=== PATIENT | female | born 2000 | race Caucasian/White ===

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

== ENCOUNTER → 2020-01-26 11:41 | Outpatient (CLI) | payer OTHER, SELFPAY ==
[2020-01-26 15:09] LABS: Hematocrit 34.5 % (37-47); Hemoglobin 11.3 g/dL (12.0-15.0); Mean Corp Hgb Conc 32.8 g/dL (32-36); Mean Corpuscular Volume 88.5 fL (81-99); Platelet Count 220 K/mm3 (150-450); RBC Distribution Width CV 12.3 % (11.6-14.6); RBC Distribution Width SD 39.2 fl (35.1-43.9); White Blood Count 6.2 K/mm3 (4.4-11.0)
[2020-01-26 15:20] LABS: Vitamin B12 539 pg/mL (211-911); Vitamin D,25 Hydroxy 26.2 ng/mL
[2020-01-26 15:37] LABS: ALB/GLOB Ratio 1.2 RATIO (0.9-2.4); AST(SGOT) 15 U/L (15-37); Alanine Aminotransfer ALT/SGPT 20 U/L (13-56); Albumin, Serum 3.7 g/dL (3.2-5.0); Alkaline Phosphatase 62 U/L (45-117); Anion Gap 6 (5-15); BUN 10 mg/dL (7-18); BUN/Creat Ratio 16.1 RATIO (10-20); Calcium,Total 8.2 mg/dL (8.5-10.1); Chloride 111 mmol/L (98-107); Creatinine, Serum 0.62 mg/dL (0.55-1.02); EST Glomerular Filtration Rate 131 mL/min (>60); Est Glom Filt Rate - Afr Amer 159 mL/min (>60); Globulin 3.2 g/dL (2.2-4.2); Glucose 84 mg/dL (74-106); Iron 79 ug/dL (50-170); Potassium 3.7 mmol/L (3.5-5.1); Protein, Total 6.9 g/dL (6.4-8.2); Sodium Level 142 mmol/L (136-145); Thyroid Stim Hormone (TSH) 6.18 uIU/mL (0.358-3.74)
[2020-01-27 08:41] LABS: T4 Free Direct 0.71 ng/dL (0.76-1.46)
== END ==
PROVIDERS: PCP Family Medicine; Referring Provider Family Medicine; Visit Provider Family Medicine
DX: Z01.83 Encounter for blood typing (principal); D64.9 Anemia, unspecified; R53.83 Other fatigue
CPT/HCPCS: 36415; 80053; 82306; 82607; 83540; 84439; 84443; 85027; 86900; 86901

== ENCOUNTER 2020-04-04 23:12 | Emergency (ER) | payer OTHER, BC, SELFPAY ==
[2020-04-04 23:13] VITALS: BP 132/84; PULSE 86; RESP 18; TEMP 36.4; O2SAT 100; BMI 25.8
--- NOTE | 2020-04-04 23:30 | ED.VIS.GEN ---
History of Present Illness Chief Complaint: Nosebleed Informant: Patient Onset: Today - JPTA, around 30 min Context: Sudden Onset - spontaneous while at work Timing: Continuous Quality: nonpulsatile bleeding Location: mainly right side Current Severity: resolved Maximum Severity: Moderate Worsened by: nothing Relieved by: holding pressure Associated Symptoms: none. no sx of anemia. Narrative: Patient works in a factory, she has spontaneous onset of a nosebleed on the right side. No injury. She takes no blood thinners for any reason. She has had nosebleeds in the past due to dry air. Mainly from the right side this time. She blew out lots of large clots, at one point this restarted the bleeding and there was trouble stopping it although it is stopped now, but her work sent her for evaluation. Prior similar symptoms: Yes Recent Illness/Hospitalization: No - Past Medical History (1) Anxiety Status: Chronic Past Medical History - Allergies and Home Meds Allergies/Adverse Reactions: Allergies No Known Allergies Allergy (Verified 04/04/20 23:16) Primary Care Physician: Dirk Kunz MD [Primary Care Provider] - Solomon Hampton MD [STAFF PHYSICIAN] - As Needed Surgical History: no surgical history Smoking Status: Never smoker Review of Systems General: Denies: Chills, Fever, Sweats ENT: Reports: - - Nosebleed. See HPI.. Denies: Sore throat Respiratory: Denies: Dyspnea, Cough Gastrointestinal: Denies: Nausea, Vomiting Neurological: Denies: Weakness, Parasthesia, Numbness Physical Exam Vital Signs/Narrative: Vital Signs Temp Pulse Resp BP Pulse Ox 04/04/20 23:13 97.6 F L 86 18 132/84 H 100 General: Well nourished, Well developed, No Acute Distress Head: Normocephalic, Atraumatic Eyes: Perrl, EOMI ENT: Moist mucous membranes, No rhinorrhea, - - Nares are patent bilaterally. There is no active bleeding from the nose. There is multifocal friable tissue at Kesselbach plexus on the right that appears to be source of recent bleeding. POP clear w/o blood. Respiratory: No distress Skin: Normal color, No rash, No Trauma Neurological: Alert, Oriented x3, Cranial nerves II-XII grossly intact, Normal Strength, Normal Sensation, Normal Gait Psychological: Normal affect, Normal Mood Procedures Procedure(s): Nasal cauterization: After placing Idania mix to the septum for 20 minutes, on reevaluation there is 1 particular small area that is about half centimeter long very anterior at the plexus that appears to be the source. It was gently cauterized with silver nitrate stick without complication or bleeding. Patient was discharged in stable condition. ED Disposition - Plan for ED Patient: Disposition: Home or Assisted Living Diagnosis: Acute anterior epistaxis Instructions: ED Epistaxis Adult Referrals: Dirk Kunz MD [Primary Care Provider] - Solomon Hampton MD [STAFF PHYSICIAN] - As Needed
[2020-04-05] MEDS: Mixture 30 ML Bottle TOPICAL (00:14)
[2020-04-05] MEDS: Silver Nitrate (BKC) 1 EACH TOPICAL (00:15)
== END 2020-04-05 00:19 | disposition home or self-care (01) ==
LOC: ED 23:38
PROVIDERS: Emergency Provider Emergency Medicine; PCP Family Medicine
DX: R04.0 Epistaxis (principal)
CPT/HCPCS: 30901; 99282

== ENCOUNTER → 2020-08-28 08:59 | Outpatient (CLI) | payer OTHER, SELFPAY ==
[2020-08-28 10:44] LABS: Vitamin D,25 Hydroxy 16.1 ng/mL
[2020-08-29 09:11] LABS: T4 Free Direct 1.05 ng/dL (0.76-1.46); Thyroid Stim Hormone (TSH) 3.17 uIU/mL (0.358-3.74)
== END ==
PROVIDERS: PCP Family Medicine; Visit Provider Family Medicine
DX: E55.9 Vitamin D deficiency, unspecified (principal); E03.9 Hypothyroidism, unspecified
CPT/HCPCS: 36415; 82306; 84439; 84443

== ENCOUNTER → 2020-11-22 16:53 | Outpatient (CLI) | payer OTHER, SELFPAY ==
[2020-11-22 18:33] LABS: Vitamin D,25 Hydroxy 18.7 ng/mL
== END ==
LOC: MFPLAB 16:55
PROVIDERS: Nurse Practitioner Family; PCP Family Medicine; Visit Provider Family Medicine
DX: E55.9 Vitamin D deficiency, unspecified (principal)
CPT/HCPCS: 36415; 82306

== ENCOUNTER 2021-02-14 22:35 | Emergency (ER) | payer OTHER, SELFPAY ==
[2021-02-14 22:36] VITALS: BP 143/76; PULSE 68; RESP 18; TEMP 36.2; O2SAT 99; BMI 32.1
[2021-02-14 23:04] LABS: Mucous, Urine 0 SEEN /hpf (<or=2+); Red Blood Cells-Urine 0 SEEN /hpf (0-5)
[2021-02-14 23:33] LABS: Color, Urine Yellow (Yellow); Glucose, Dipstick Normal (Normal); Ketone-Dipstick Negative (Negative); Leukocyte Esterase-Dipstick 100 /ul (Negative); Nitrite-Dipstick Negative (Negative); Occult Blood-Urine 10 /ul (Negative); Protein-Dipstick 15 mg/dl (Negative); Urine Bilirubin Dipstick Negative (Negative); Urine Clarity Sl. Cloudy (Clear); Urine Urobilinogen 1 mg/dl (Normal)
[2021-02-14 23:38] LABS: Internal QC Validated? YES +Cl - CLEAR BKGD; Pregnancy, Urine Negative Negative
[2021-02-14 23:49] LABS: Bacteria 1+ /hpf (None Seen); Squamous Epithelial Cells - UA 5-10 SEEN /hpf (5-10); White Blood Cells 10-25 SEEN /hpf (0-5)
--- NOTE | 2021-02-15 00:06 | EDS_ITS ---
HPI History of Present Illness Chief Complaint: Complaint Narrative Narrative: Patient is a 20-year-old female who reports no significant past medical or surgical history. She states for the past 2 to 3 days she has had increased urinary frequency urgency and dysuria. She states she is also had some lower abdominal pain associated with this. She states she has noticed persistent burning even when she is not urinating however. She states that people in her family have had a cyst/abscess before and she is worried about this. Otherwise she denies any real concern for STD and states that she is not . PFSH PFSH Medical History no medical history Home Medications NK 05/11/19 [History Last Taken Unknown] cephalexin 500 mg PO TID #15 cap 02/15/21 [Rx Last Taken Unknown] phenazopyridine [Pyridium] 200 mg PO TID 2 Days #6 tab 02/15/21 [Rx Last Taken Unknown] Allergy/AdvReac Type Severity Reaction Status Date / Time No Known Allergies Allergy Verified 02/14/21 22:35 Social History Smoking Status: Never smoker [facility] ED Constitutional Constitutional ED: Denies chills or fever(s) ENT ENT ED: Denies sore throat Cardiovascular Cardiovascular: Denies chest pain Respiratory/Chest Respiratory/Chest: Denies cough or dyspnea Gastrointestinal Gastrointestinal: Reports abdominal pain; Denies diarrhea, nausea or vomiting Genitourinary Genitourinary ED: Reports dysuria and urinary frequency Musculoskeletal Musculoskeletal: Denies myalgias Integumentary Denies rash Neurologic Neurologic: Denies headache(s) Hematologic/Lymphatic Hematologic/Lymphatic: Denies easy bleeding or easy bruising EXAM Physical Exam Const Vital Signs: 02/14/21 22:36 Temperature 97.1 F L Temperature Source Temporal Pulse Rate 68 Respiratory Rate 18 Blood Pressure 143/76 H Blood Pressure Mean 98 Pulse Ox 99 Oxygen Delivery Method Room Air Positive well nourished and well developed General Appearance ED: well developed Eyes PERRL and EOMs intact bilaterally Neck supple Resp normal respiratory effort and clear to auscultation bilaterally Cardio regular rate and regular rhythm GI normal to inspection, nondistended, normoactive bowel sounds and non-distended GI Narrative: There is mild pain with palpation in the suprapubic region but no voluntary guarding or rigidity Auscultation: normoactive bowel sounds Palpation: soft Narrative: External genitalia is normal there is no signs of a Bartholin cyst/abscess no soft tissue changes to suggest Ruth's gangrene or herpetic infection Back/Spine no CVA tenderness Extremity normal to inspection Neuro oriented x3 and CN's II-XII intact bilaterally Sensorium / Orientation: alert Psych mental status grossly normal Skin no rashes or lesions noted MDM MDM MDM Narrative Medical decision making narrative: Patient presented to the ER afebrile with a soft nonsurgical abdomen and symptoms most consistent with UTI. Therefore this time I felt no need for work-up other than a urine sample. She denied concern for STD but did ask that her urine be sent for gonorrhea and chlamydia. She states she does not want treated for them at this time. The urine showed changes consistent with infection and therefore she will be placed on Keflex and Pyridium but as she does not have signs of urosepsis is safe for discharge Lab Data Labs: Laboratory Results - last 24 hr 02/14/21 22:56 Urine Color Yellow Urine Clarity Sl. Cloudy Urine pH 5.0 Ur Specific [place] 1.030 Urine Protein 15 H Urine Glucose (UA) Normal Urine Ketones Negative Urine Occult Blood 10 H Urine Nitrite Negative Urine Bilirubin Negative Urine Urobilinogen 1 H Ur Leukocyte Esterase 100 H Urine RBC 0 SEEN Urine WBC 10-25 SEEN Ur Squamous Epith Cells 5-10 SEEN Urine Bacteria 1+ Urine Mucus 0 SEEN Urine Test Negative Discharge Plan Triage Chief Complaint: Complaint ED Provider: Philipp Aguilar Dx/Rx/DC Orders Clinical Impression: Urinary tract infection Instructions: UITs Women Prescriptions: New cephalexin 500 mg capsule 500 mg PO TID Qty: 15 RF: 0 phenazopyridine [Pyridium] 200 mg tablet 200 mg PO TID 2 Days Qty: 6 RF: 0 No Action NK RF: 0 Primary Care Provider: Dirk Kunz Referrals: Dirk Kunz MD [Primary Care Provider] - Disposition Disposition: Home, Self Care
[2021-02-15] MEDS: Phenazopyridine 95 MG Tablet 190 MG PO (00:43)
[2021-02-15] MEDS: Cephalexin 250 MG Capsule 500 MG PO (00:44)
[2021-02-15 00:47] VITALS: PULSE 76; RESP 16; O2SAT 99
[2021-02-15 01:54] LABS: Chlamydia Trachomatis by PCR Negative (Negative); Neisserai gonorrhoeae by PCR Negative (Negative); Probe Check PASS; Sample Adequacy Control PASS; Specimen Processing Control PASS
== END 2021-02-15 00:47 | disposition home or self-care (01) ==
PROVIDERS: Emergency Medicine; Emergency Provider Emergency Medicine; PCP Family Medicine
DX: N39.0 Urinary tract infection, site not specified (principal)
CPT/HCPCS: 81001; 81025; 87086; 87088; 87186; 87491; 87591; 99283

== ENCOUNTER → 2021-02-15 | Outpatient (CLI) | payer OTHER, SELFPAY | END | disposition home or self-care (01) | LOC: LABSPEC 16:55 | PROVIDERS: PCP Family Medicine; Referring Provider Family Medicine; Visit Provider Nurse Practitioner Family | DX: R30.0 Dysuria (principal) | CPT/HCPCS: 87086 ==

== ENCOUNTER 2021-07-11 16:49 | Outpatient (CLI) | payer OTHER, SELFPAY ==
[2021-07-11 18:14] LABS: Anion Gap 7 (5-15); BUN 15 mg/dL (7-18); BUN/Creat Ratio 22.8 RATIO (10-20); Chloride 111 mmol/L (98-107); Creatinine, Serum 0.66 mg/dL (0.55-1.02); EST Glomerular Filtration Rate 121 mL/min (>60); Est Glom Filt Rate - Afr Amer 146 mL/min (>60); Glucose 107 mg/dL (74-106); Potassium 3.5 mmol/L (3.5-5.1); Sodium Level 139 mmol/L (136-145); Thyroid Stim Hormone (TSH) 1.67 uIU/mL (0.358-3.74)
== END 2021-07-11 23:59 | disposition home or self-care (01) ==
LOC: MTLAB 16:52
PROVIDERS: PCP Family Medicine; Referring Provider Family Medicine; Visit Provider Family Medicine
DX: R53.83 Other fatigue (principal); E03.9 Hypothyroidism, unspecified; N39.0 Urinary tract infection, site not specified
CPT/HCPCS: 36415; 80048; 82306; 84443; 87077; 87086; 87088; 87186

== ENCOUNTER 2021-09-12 14:06 | Outpatient (CLI) | payer OTHER, SELFPAY ==
[2021-09-12 15:03] LABS: Absolute Lymphocyte Count 2.74 X10^3/uL (0.83-4.51); Absolute Neutrophil Count 6.3 X10^3/uL (2.0-7.7); Basophil# 0.06 X10^3/uL; Basophil% 0.6 % (0-1); Eosinophils% 3.8 % (0-5); Hemoglobin 12.5 g/dL (12.0-15.0); Lymphocyte # 2.74 X10^3/ul (0.83-4.51); Lymphocyte % 26.2 % (19-41); Mean Corp Hgb Conc 34.7 g/dL (32-36); Mean Corpuscular Hgb 29.6 pg (27.0-32.0); Mean Corpuscular Volume 85.3 fL (81-99); Mean Platelet Vol. 12.1 fl (6.2-12.0); Monocyte# 0.92 X10^3/uL; Monocyte% 8.8 % (0-10); NRBC Flagged by Analyzer 0 % (0-5); Neutrophil # 6.28 X10^3/uL (2.7-7.7); Neutrophil % 60.1 % (47-70); Platelet Count 224 K/mm3 (150-450); RBC Distribution Width CV 12.3 % (11.6-14.6); RBC Distribution Width SD 37.4 fl (35.1-43.9); Red Blood Count 4.22 M/mm3 (4.2-5.4); White Blood Count 10.5 K/mm3 (4.4-11.0)
[2021-09-12 15:11] LABS: ALB/GLOB Ratio 1.1 RATIO (0.9-2.4); AST(SGOT) 18 U/L (15-37); Alanine Aminotransfer ALT/SGPT 36 U/L (13-56); Albumin, Serum 3.6 g/dL (3.2-5.0); Alkaline Phosphatase 86 U/L (45-117); Anion Gap 7 (5-15); BUN 11 mg/dL (7-18); Calcium,Total 8.8 mg/dL (8.5-10.1); Chloride 113 mmol/L (98-107); Creatinine, Serum 0.61 mg/dL (0.55-1.02); EST Glomerular Filtration Rate 131 mL/min (>60); Est Glom Filt Rate - Afr Amer 159 mL/min (>60); Globulin 3.4 g/dL (2.2-4.2); Glucose 106 mg/dL (74-106); Potassium 4.1 mmol/L (3.5-5.1); Sodium Level 140 mmol/L (136-145)
[2021-09-12 15:15] LABS: Vitamin D,25 Hydroxy 26.3 ng/mL
== END 2021-09-12 23:59 | disposition home or self-care (01) ==
LOC: MFPLAB 14:07
PROVIDERS: PCP Family Medicine; Visit Provider Family Medicine
DX: R10.9 Unspecified abdominal pain (principal); E55.9 Vitamin D deficiency, unspecified
CPT/HCPCS: 36415; 80053; 82306; 85025

== ENCOUNTER 2021-09-12 14:33 | Outpatient (CLI) | payer OTHER, SELFPAY ==
--- NOTE | 2021-09-12 14:46 | CT_ITS ---
STUDY: CT ABDOMEN AND PELVIS WITH CONTRAST REASON FOR EXAM: Female, 21 years old. ABDOMINAL PAIN RADIATION DOSAGE (If Supplied By Facility): CTDIvol = ( 14.24 ) mGy, DLP = ( 939.43 ) mGycm TECHNIQUE: Transaxial images were obtained from the dome of the diaphragm to the symphysis pubis without oral contrast. Oral and amp;amp; IV Gastrografin and amp;amp; 100mL Isovue-370 was administered. Sagittal and coronal images were reconstructed. Individualized dose optimization techniques were used for this CT. COMPARISON: None. FINDINGS: Lung bases clear. Unremarkable liver, spleen, pancreas, adrenals, and bilateral kidneys. No definite cholelithiasis. Normal appendix. Bowel loops nonobstructed. No free air or free fluid. No adenopathy. Intact abdominal aorta and its major branches. Very small fat-containing umbilical hernia sections through the pelvis demonstrate an approximately 3.6 cm cystic lesion in the right adnexa. Urinary bladder grossly unremarkable. Bilateral pars defects of L5 with grade 1 spondylolisthesis of L5 on S1. Apparent mild levoscoliosis of the lumbar spine. CT/Abdomen/Pelvis WITH Contrast IMPRESSION: A 3.6 cm cystic area in the right adnexa, amenable to further evaluation by ultrasound. No other acute finding in the abdomen and pelvis. Normal appendix. Electronically Signed: Humberto Albarran MD at 18:00 EDT ,
== END 2021-09-12 23:59 | disposition home or self-care (01) ==
PROVIDERS: PCP Family Medicine; Referring Provider Family Medicine; Visit Provider Family Medicine
DX: R10.9 Unspecified abdominal pain (principal)
CPT/HCPCS: 74177; Q9967

== ENCOUNTER 2021-09-14 18:53 | Emergency (ER) | payer OTHER, SELFPAY ==
[2021-09-14 18:55] VITALS: BP 141/92; PULSE 96; RESP 18; TEMP 36.5; O2SAT 97; BMI 33.0
--- NOTE | 2021-09-14 19:14 | US_ITS ---
STUDY: ULTRASOUND OF THE FEMALE PELVIS - COMPLETE REASON FOR EXAM: Female, 21 years old. right ovarian cyst, increased pain LMP: 08/07/2021. TECHNIQUE: Transabdominal scan. TECHNICAL QUALITY: Adequate. COMPARISON: CT abdomen pelvis 09/12/2021.. FINDINGS: UTERUS: 7.8 cm length. Normal configuration. ENDOMETRIUM: Not thickened. OVARIES: Right ovary: 4.9 x 4.9 x 4.8 cm. Simple cyst 3.7 x 3.1 x 3.4 cm. Vascular flow demonstrated. No findings to suggest ovarian torsion. Left ovary: 2.6 x 2.3 x 1.4 cm. Unremarkable. Vascular flow demonstrated. No findings to suggest ovarian torsion. FREE FLUID: None. US/Pelvic (Non ) IMPRESSION: Right ovarian 3.7 cm cyst. Electronically Signed: Shonna Almonte MD at 21:01 EDT ,
--- NOTE | 2021-09-14 19:22 | EDS_ITS ---
HPI History of Present Illness Chief Complaint: Abd Pain Informant: patient Onset/Context/Timing Onset: Weeks Context: Gradual Onset Current Severity: Mild Maximum Severity: Moderate Narrative Narrative: Patient presents secondary to increased lower abdominal pain. She is been having pain for the last 2 weeks. She was seen at her PCPs office earlier this week where an ultrasound revealed a 3.6 cm right adnexal cyst. She states she is still awaiting an ultrasound. She presents to the ER today because of increased pain. She does report some urinary symptoms as well. No fever or chills. She had blood work done at the office this week that was unremarkable, however I do not see a test. Patient does have control implant in place. [facility] Medical History Anxiety Depression Home Medications hydroxyzine HCl 09/14/21 [History Last Taken Unknown] naproxen [Naprosyn] 500 mg PO BID PRN #20 tab 09/14/21 [Rx Last Taken Unknown] sulfamethoxazole-trimethoprim [Bactrim DS] 1 tab PO BID #6 tab 09/14/21 [Rx Last Taken Unknown] Allergy/AdvReac Type Severity Reaction Status Date / Time No Known Allergies Allergy Verified 09/14/21 18:54 Social History Smoking Status: Never smoker ROS ROS ED Constitutional Constitutional ED: Denies chills or fever(s) Eyes Eyes: Denies change in vision ENT ENT ED: Denies sore throat Cardiovascular Cardiovascular: Denies chest pain Respiratory/Chest Respiratory/Chest: Denies cough or dyspnea Gastrointestinal Gastrointestinal: Reports abdominal pain and nausea; Denies vomiting Genitourinary Genitourinary ED: Reports dysuria and urinary frequency Musculoskeletal Musculoskeletal: Denies back pain or neck pain Integumentary Denies rash Neurologic Neurologic: Denies headache(s) or weakness Allergic/Immunologic Allergic/Immunologic ED: Denies urticaria EXAM Physical Exam Const Vital Signs: 09/14/21 18:55 09/14/21 21:33 Temperature 97.7 F L Temperature Source Temporal Pulse Rate 96 78 Respiratory Rate 18 16 Blood Pressure 141/92 H 136/78 H Blood Pressure Mean 108 Pulse Ox 97 Oxygen Delivery Method Room Air Positive well nourished and well developed General Appearance ED: well developed HEENT Reports moist mucous membranes Eyes PERRL and EOMs intact bilaterally Neck supple Chest Wall inspection of chest normal and palpation of chest normal Resp normal respiratory effort and clear to auscultation bilaterally Cardio regular rate and regular rhythm GI GI Narrative: Mild right lower quadrant tenderness to palpation. No guarding or rebound. Auscultation: hypoactive bowel sounds Palpation: soft and tender; Negative for guarding or rebound tenderness present Extremity normal to inspection Neuro oriented x3 Sensorium / Orientation: alert Psych mental status grossly normal Skin no rashes or lesions noted MDM MDM MDM Narrative Medical decision making narrative: Patient given Toradol for pain. Recent lab work is reviewed. Urinalysis and serum test ordered. Pelvic ultrasound ordered. Lab Data Attestation: I reviewed the patient's lab results. Labs: Laboratory Results - last 24 hr 09/14/21 09/14/21 19:20 19:25 Serum , Qual NEGATIVE Urine Color Yellow Urine Clarity Clear Urine pH 5.0 Ur Specific [place] 1.025 Urine Protein 15 H Urine Glucose (UA) Normal Urine Ketones 5 H Urine Occult Blood Negative Urine Nitrite Positive H Urine Bilirubin Negative Urine Urobilinogen Normal Ur Leukocyte Esterase 25 H Urine RBC 0 SEEN Urine WBC 0-5 SEEN Ur Squamous Epith Cells 0-5 SEEN Urine Bacteria RARE Urine Mucus 0 SEEN Radiography Diagnostic Testing: Clinical Impression(s) from Imaging Studies Pelvis Ultrasound 09/14/21 19:14 IMPRESSION: Right ovarian 3.7 cm cyst. Electronically Signed: Shonna Almonte MD at 21:01 EDT Reading Location ID and State: [address] [place] [address] Tel , Service support , Treatment and Re-Evaluation Narrative: Urinalysis does show positive nitrites with rare bacteria. Because she is symptomatic she will be treated with 3-day course of Bactrim. Pelvic ultrasound reveals a 3.7 cm cyst. No evidence of torsion. Test results discussed with patient and family at bedside. She will follow-up with her [facility]. Discharge Plan Triage Chief Complaint: Abd Pain ED Provider: Salena Hayes Dx/Rx/DC Orders Clinical Impression: Ovarian cyst, UTI (urinary tract infection) Instructions: ED Ovarian Cyst, ED CYSTITIS Female Adult Prescriptions: New sulfamethoxazole-trimethoprim [Bactrim DS] 800-160 mg tablet 1 tab PO BID Qty: 6 RF: 0 naproxen [Naprosyn] 500 mg tablet 500 mg PO BID PRN (Reason: pain) Qty: 20 RF: 0 No Action hydroxyzine HCl 25 mg tablet RF: 0 Primary Care Provider: Dirk Kunz Referrals: Dirk Kunz MD [Primary Care Provider] - Juany Blum MD [STAFF PHYSICIAN] - 1-2 Weeks Disposition Disposition: Home, Self Care Discharge Date/Time: 09/14/21 21:33
[2021-09-14] MEDS: Ketorolac 30 MG/ML Syringe IV (19:28)
[2021-09-14 19:29] LABS: Mucous, Urine 0 SEEN /hpf (<or=2+); Red Blood Cells-Urine 0 SEEN /hpf (0-5)
[2021-09-14 19:37] LABS: Color, Urine Yellow (Yellow); Glucose, Dipstick Normal (Normal); Ketone-Dipstick 5 mg/dl (Negative); Leukocyte Esterase-Dipstick 25 /ul (Negative); Nitrite-Dipstick Positive (Negative); Occult Blood-Urine Negative /ul (Negative); Protein-Dipstick 15 mg/dl (Negative); Specific Gravity, Urine 1.025 (1.002-1.030); Urine Bilirubin Dipstick Negative (Negative); Urine Clarity Clear (Clear); Urine Urobilinogen Normal (Normal)
[2021-09-14 19:41] LABS: Internal QC Validated? YES +Cl - CLEAR BKGD; Pregnancy, Serum, hCG Quali. NEGATIVE Negative
[2021-09-14 19:45] LABS: Bacteria RARE /hpf (None Seen); Squamous Epithelial Cells - UA 0-5 SEEN /hpf (5-10); White Blood Cells 0-5 SEEN /hpf (0-5)
[2021-09-14] MEDS: Smz/Tmp Ds Tablet 1 TABLET PO (21:27)
[2021-09-14 21:33] VITALS: BP 136/78; PULSE 78; RESP 16
== END 2021-09-14 21:33 | disposition home or self-care (01) ==
PROVIDERS: Emergency Provider Emergency Medicine; PCP Family Medicine; Visit Provider Emergency Medicine
DX: N39.0 Urinary tract infection, site not specified (principal); N83.201 Unspecified ovarian cyst, right side
CPT/HCPCS: 76856; 81001; 84703; 96374; 99284; A4216

== ENCOUNTER → 2021-11-26 | Outpatient (CLI) | payer OTHER, SELFPAY | END | disposition home or self-care (01) | PROVIDERS: PCP Family Medicine; Visit Provider Family Medicine | DX: U07.1 COVID-19 (principal) | CPT/HCPCS: 87635; U0003; U0005 ==

== ENCOUNTER → 2022-06-27 | Outpatient (CLI) | payer OTHER, SELFPAY | END | disposition home or self-care (01) | PROVIDERS: PCP Family Medicine; Visit Provider Family Medicine | DX: N39.0 Urinary tract infection, site not specified (principal) | CPT/HCPCS: 87086; 87088 ==

== ENCOUNTER → 2023-03-24 | Outpatient (CLI) | payer OTHER, SELFPAY ==
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
== END | disposition home or self-care (01) ==
LOC: MTRAD 16:35
PROVIDERS: PCP Family Medicine; Referring Provider Family Medicine; Visit Provider Family Medicine
DX: T14.8XXA Other injury of unspecified body region, initial encounter (principal)
CPT/HCPCS: 73590

== ENCOUNTER → 2023-04-29 | Outpatient (CLI) | payer OTHER, SELFPAY ==
[2023-04-29 17:49] LABS: Hemoglobin 12.5 g/dL (12.0-15.0); Mean Corp Hgb Conc 32.9 g/dL (32-36); Mean Corpuscular Hgb 29.1 pg (27.0-32.0); Mean Corpuscular Volume 88.4 fL (81-99); Mean Platelet Vol. 11.3 fl (6.2-12.0); Platelet Count 273 K/mm3 (150-450); RBC Distribution Width CV 12.4 % (11.6-14.6); White Blood Count 9.8 K/mm3 (4.4-11.0)
[2023-04-29 18:18] LABS: Vitamin D,25 Hydroxy 23.5 ng/mL
[2023-04-29 18:24] LABS: ALB/GLOB Ratio 1.1 RATIO (0.9-2.4); AST(SGOT) 28 U/L (15-37); Alanine Aminotransfer ALT/SGPT 39 U/L (13-56); Albumin, Serum 4.1 g/dL (3.2-5.0); Alkaline Phosphatase 78 U/L (45-117); Anion Gap 6 (5-15); BUN 13 mg/dL (7-18); BUN/Creat Ratio 18.4 RATIO (10-20); Calcium,Total 8.5 mg/dL (8.5-10.1); Chloride 109 mmol/L (98-107); Cholesterol 176 mg/dL (200); Creatinine, Serum 0.71 mg/dL (0.55-1.02); EST Glomerular Filtration Rate 109 mL/min (>60); Est Glom Filt Rate - Afr Amer 132 mL/min (>60); Globulin 3.6 g/dL (2.2-4.2); Glucose 81 mg/dL (74-106); High Density Lipoprotein 49 mg/dL; Potassium 3.4 mmol/L (3.5-5.1); Protein, Total 7.7 g/dL (6.4-8.2); Sodium Level 138 mmol/L (136-145); Thyroid Stim Hormone (TSH) 1.21 uIU/mL (0.358-3.74); Triglycerides 66 mg/dL; Very Low Density Lipoprotein 13 mg/dL (5-40)
== END | disposition home or self-care (01) ==
LOC: MFPLAB 16:19
PROVIDERS: PCP Family Medicine; Visit Provider Family Medicine
DX: Z13.220 Encounter for screening for lipoid disorders (principal); E03.9 Hypothyroidism, unspecified; R79.89 Other specified abnormal findings of blood chemistry; F32.A Depression, unspecified
CPT/HCPCS: 36415; 80053; 80061; 82306; 82533; 84439; 84443; 85027

== ENCOUNTER → 2023-05-29 | Outpatient (CLI) | payer OTHER, SELFPAY ==
--- NOTE | 2023-05-29 16:06 | US_ITS ---
INDICATION: goiter EXAMINATION: Ultrasound US Thyroid (eg thyroid, parathyroid, parotid) TECHNIQUE: Gann scale and color doppler imaging was performed of the thyroid gland. COMPARISON: FINDINGS: RIGHT THYROID LOBE: 5.8 x 1.9 x 1.9 cm. Heterogeneous echotexture with normal vascularity. [No thyroid nodules are present. LEFT THYROID LOBE: 5.0 x 1.7 x 1.5 cm. Heterogeneous echotexture with normal vascularity. [There is a mid thyroid solid by 3 x 5 mm nodule. There is a lower pole 6 x 5 x 6 mm cystic nodule. ISTHMUS: 2.6 mm. There is a 5 x 6 x 2 mm cystic nodule. US/Thyroid IMPRESSION: Bilateral heterogeneity. Cystic nodules of the left thyroid lobe and the isthmus. Solid left thyroid nodule. 4-6 month follow up may be of value if needed. Electronically Signed: Andrew Rader DO at 18:04 EST ,
== END | disposition home or self-care (01) ==
LOC: US 16:06
PROVIDERS: PCP Family Medicine; Referring Provider Family Medicine; Visit Provider Family Medicine
DX: E04.9 Nontoxic goiter, unspecified (principal)
CPT/HCPCS: 76536

== ENCOUNTER → 2023-08-26 | Outpatient (CLI) | payer OTHER, SELFPAY ==
[2023-08-26 17:58] LABS: Absolute Lymphocyte Count 2.85 X10^3/uL (0.83-4.51); Absolute Neutrophil Count 5.7 X10^3/uL (2.0-7.7); Basophil# 0.05 X10^3/uL; Basophil% 0.5 % (0-1); Eosinophil# 0.66 X10^3/uL; Eosinophils% 6.5 % (0-5); Hemoglobin 11.9 g/dL (12.0-15.0); Lymphocyte # 2.85 X10^3/ul (0.83-4.51); Lymphocyte % 28.1 % (19-41); Mean Corp Hgb Conc 33.1 g/dL (32-36); Mean Corpuscular Hgb 28.6 pg (27.0-32.0); Mean Corpuscular Volume 86.5 fL (81-99); Mean Platelet Vol. 11.3 fl (6.2-12.0); Monocyte# 0.86 X10^3/uL; Monocyte% 8.5 % (0-10); NRBC Flagged by Analyzer 0 % (0-5); Neutrophil # 5.69 X10^3/uL (2.7-7.7); Platelet Count 299 K/mm3 (150-450); RBC Distribution Width CV 12.3 % (11.6-14.6); RBC Distribution Width SD 38.5 fl (35.1-43.9); Red Blood Count 4.16 M/mm3 (4.2-5.4); White Blood Count 10.2 K/mm3 (4.4-11.0)
[2023-08-26 18:03] LABS: Erythrocyte Sedimentation Rate 18 mm/hr (0-30)
[2023-08-26 18:46] LABS: Vitamin B12 568 pg/mL (211-911); Vitamin D,25 Hydroxy 33.1 ng/mL
[2023-08-26 19:24] LABS: ALB/GLOB Ratio 1.2 RATIO (0.9-2.4); AST(SGOT) 17 U/L (15-37); Alanine Aminotransfer ALT/SGPT 34 U/L (13-56); Albumin, Serum 3.8 g/dL (3.2-5.0); Alkaline Phosphatase 80 U/L (45-117); Anion Gap 6 (5-15); BUN 14 mg/dL (7-18); BUN/Creat Ratio 20.3 RATIO (10-20); Calcium,Total 8.6 mg/dL (8.5-10.1); Chloride 110 mmol/L (98-107); Creatinine, Serum 0.69 mg/dL (0.55-1.02); EST Glomerular Filtration Rate 112 mL/min (>60); Est Glom Filt Rate - Afr Amer 136 mL/min (>60); Free T3 2.9 pg/mL (2.18-3.98); Globulin 3.3 g/dL (2.2-4.2); Glucose 93 mg/dL (74-106); Iron 64 ug/dL (50-170); Potassium 3.8 mmol/L (3.5-5.1); Protein, Total 7.1 g/dL (6.4-8.2); Sodium Level 139 mmol/L (136-145); T4 Free Direct 1.13 ng/dL (0.76-1.46); Thyroid Stim Hormone (TSH) 0.99 uIU/mL (0.358-3.74)
== END | disposition home or self-care (01) ==
LOC: MFPLAB 16:57
PROVIDERS: PCP Family Medicine; Visit Provider Family Medicine
DX: E03.9 Hypothyroidism, unspecified (principal); R53.83 Other fatigue; R04.0 Epistaxis; R79.89 Other specified abnormal findings of blood chemistry
CPT/HCPCS: 36415; 80053; 82306; 82533; 82607; 83540; 84439; 84443; 84481; 85025; 85652

== ENCOUNTER → 2024-08-10 | Outpatient (CLI) | payer BC, SELFPAY ==
--- NOTE | 2024-08-10 09:47 | RAD_ITS ---
PROCEDURE: ESOPHAGUS DUAL CONTRAST 08/10/2024 REASON FOR EXAM: DYSPEPSIA TECHNIQUE: FLUOROSCOPIC TIME: 31 seconds. 9.8 mGy FLUOROGRAPHIC IMAGES: 35 The patient ingested barium. Multiple images of the esophagus were obtained. COMPARISON: None. FINDINGS: The esophagus is unremarkable. No evidence of obstruction. No evidence of gastroesophageal reflux. The patient ingested a 12 mm tablet the barium without any difficulty. RAD/Esophagus Dual Contrast IMPRESSION: Unremarkable esophagram. Reading Location: [facility]
== END | disposition home or self-care (01) ==
LOC: RAD 09:41
PROVIDERS: PCP Family Medicine; Referring Provider Family Medicine; Visit Provider Family Medicine
DX: R10.13 Epigastric pain (principal)
CPT/HCPCS: 74221

== ENCOUNTER 2024-08-16 16:58 | Emergency (ER) | payer BC, SELFPAY ==
[2024-08-16 16:58] VITALS: BP 152/116; PULSE 65; RESP 16; TEMP 36.7; O2SAT 98; BMI 38.8
--- NOTE | 2024-08-16 17:20 | EX.ED.DYSGE1 ---
HPI History of Present Illness Chief Complaint: Suicidal Narrative Narrative: Patient is a 24-year-old female past medical history of Tiffany, depression who presented to the emergency department the chief complaint of worsening depression over the last 2 weeks. Patient states that she has been very depressed states that in the past she has tried to kill herself when she was younger by trying to choke herself. She states that currently she has no plan to kill herself or anybody else but is very depressed. She states that she has been sleeping a lot and eating just to try to keep her mind off of things. Patient's aunt at bedside states that her counselor thinks that she may have borderline personality disorder as well therefore they have not started medications as they are not fully sure what her underlying diagnosis is at this point in time. [facility] Medical History Depression Anxiety Home Medications ?Medication ?Instructions ?Recorded ?Last Taken ?Type omeprazole 40 mg capsule,delayed 40 mg PO DAILY PRN GERD 08/16/24 Unknown History release Allergy/AdvReac Type Severity Reaction Status Date / Time cinnamon Allergy Severe Angioedema Verified 08/16/24 16:59 Family History no significant family his Surgical History no surgical history Social History Smoking Status: Never smoker ROS ROS ED ROS Narrative Constitutional: Denies fevers, chills, headaches, lightness, dizziness Eyes: PERRL bilaterally, EOMI bilateral, no conjunctival injection noted Cardiovascular: Denies chest pain or palpitations Respiratory: Denies coughing wheezing shortness of breath Abdomen: Denies abdominal pain nausea vomit diarrhea : Denies urinary symptoms Neurological: Denies numbness, weakness, tingling Musculoskeletal: Denies back pain Skin: Denies rashes or lesions EXAM Physical Exam Narrative Exam Narrative: General: Patient lying in bed rest comfortably did not appear to be in acute distress Head: Atraumatic, normocephalic Eyes: PERRL bilaterally, EOMI bilaterally, no conjunctival injection noted Neck: Soft, supple, trachea midline Cardiovascular: Regular rate and rhythm Extremities: +5/5 strength noted in the bilateral upper and lower extremities, radial pulse +2/4 in bilateral extremities, no pedal edema on exam Neurological: Patient following commands knew that she was at [facility] year is 2024 Skin: Warm, dry, intact no rashes or lesions noted Const Vital Signs: 08/16/24 16:58 Temperature 98.1 F Temperature Source Oral Pulse Rate 65 Respiratory Rate 16 Blood Pressure 152/116 H Blood Pressure Mean 128 Pulse Ox 98 Oxygen Delivery Method Room Air MDM MDM MDM Narrative Medical decision making narrative: Patient is a 24-year-old female who presented to the emerged part with chief complaint of depression. On the differential diagnose includes but not limited to depression, anxiety, borderline personality disorder. Once workup is obtained reviewed she will be reevaluated and evaluated by the social work/crisis team. Patient CBC was reviewed showed a white blood cell count of 15,000, hemoglobin stable 13.4, platelet count normal at 260. Patient sodium normal 136, potassium normal 3.9, creatinine normal at 0.66. Patient test was negative. Patient's drug screen negative alcohol level less than 10. Crisis/social media intern evaluate the patient and are recommending admission. Patient was pink slipped. Patient was accepted to [facility] by Dr. Garcia. Patient is agreeable with this plan all question concerns answered. Lab Data Labs: Laboratory Results - last 24 hr 08/16/24 17:16 WBC 15.9 H RBC 4.55 Hgb 13.4 Hct 38.9 MCV 85.5 MCH 29.5 MCHC 34.4 RDW Std Deviation 38.4 RDW Coeff of Kimberly 12.4 Plt Count 260 MPV 11.5 Immature Gran % (Auto) 0.800 Neut % (Auto) 65.5 Lymph % (Auto) 22.7 [place] % (Auto) 7.4 Eos % (Auto) 2.8 Baso % (Auto) 0.8 Absolute Neuts (auto) 10.4 H Absolute Lymphs (auto) 3.60 Nucleated RBC % 0 Sodium 136 Potassium 3.9 Chloride 106 Carbon Dioxide 19.2 L Anion Gap 11 BUN 11 Creatinine 0.66 L Estim Creat Clear Calc 158.90 Est GFR (MDRD) Non-Af 126 BUN/Creatinine Ratio 16.9 Glucose 91 Calcium 9.3 Serum , Qual NEGATIVE Urine Opiates Screen NEGATIVE U Buprenorphine Qual NEGATIVE Ur Oxycodone Screen NEGATIVE Urine Methadone Screen NEGATIVE Urine Fentanyl Screen NEGATIVE Ur Barbiturates Screen NEGATIVE Ur Phencyclidine Scrn NEGATIVE Ur Amphetamines Screen NEGATIVE U Benzodiazepines Scrn NEGATIVE Urine Cocaine Screen NEGATIVE U Cannabinoids Screen NEGATIVE Ethyl Alcohol < 10.1 Discharge Plan Triage Chief Complaint: Suicidal ED Provider: Arnold Ruiz Dx/Rx/DC Orders Clinical Impression: Suicidal ideation Prescriptions: No Action omeprazole 40 mg capsule,delayed release(DR/EC) 40 mg PO DAILY PRN (Reason: GERD) Primary Care Provider: David Kunz Referrals: David Kunz MD [Primary Care Provider] - Print Language: Hungarian Disposition Disposition: Psychiatric Hospital or Unit Discharge Location: [facility]
[2024-08-16 17:33] LABS: Absolute Neutrophil Count 10.4 X10^3/uL (2.0-7.7); Basophil# 0.12 X10^3/uL; Basophil% 0.8 % (0-1); Eosinophil# 0.44 X10^3/uL; Eosinophils% 2.8 % (0-5); Hematocrit 38.9 % (37-47); Hemoglobin 13.4 g/dL (12.0-15.0); Lymphocyte % 22.7 % (19-41); Mean Corp Hgb Conc 34.4 g/dL (32-36); Mean Corpuscular Hgb 29.5 pg (27.0-32.0); Mean Corpuscular Volume 85.5 fL (81-99); Mean Platelet Vol. 11.5 fl (6.2-12.0); Monocyte# 1.17 X10^3/uL; Monocyte% 7.4 % (0-10); NRBC Flagged by Analyzer 0 % (0-5); Neutrophil # 10.41 X10^3/uL (2.7-7.7); Neutrophil % 65.5 % (47-70); Platelet Count 260 K/mm3 (150-450); RBC Distribution Width CV 12.4 % (11.6-14.6); RBC Distribution Width SD 38.4 fl (35.1-43.9); Red Blood Count 4.55 M/mm3 (4.2-5.4); White Blood Count 15.9 K/mm3 (4.4-11.0)
[2024-08-16 18:03] LABS: Internal QC Validated? YES +Cl - CLEAR BKGD; Pregnancy, Serum, hCG Quali. NEGATIVE Negative
[2024-08-16 18:06] LABS: Alcohol, Blood (Medical)-Serum < 10.1 mg/dL (<=10.0); Anion Gap 11 (5-15); BUN 11 mg/dL (4-19); BUN/Creat Ratio 16.9 RATIO (10-20); Calcium,Total 9.3 mg/dL (7.6-11.0); Carbon Dioxide 19.2 mmol/L (21.0-32.0); Chloride 106 mmol/L (98-108); Creatinine, Serum 0.66 mg/dL (0.70-1.20); EST Glomerular Filtration Rate 126 (>60); Glucose 91 mg/dL (70-99); Potassium 3.9 mmol/L (3.3-5.1); Sodium Level 136 mmol/L (133-145)
[2024-08-16 18:10] LABS: Amphetamine Urine NEGATIVE (<1000 ng/mL); Barbiturate Urine NEGATIVE (< 200 ng/mL); Benzodiazepine Urine NEGATIVE (< 200 ng/mL); Buprenorphine Urine NEGATIVE (< 200 ng/mL); Cocaine Urine NEGATIVE (< 300 ng/mL); Fentanyl, Urine NEGATIVE; Methadone Urine NEGATIVE (< 300 ng/mL); Opiates Urine NEGATIVE (< 300 ng/mL); Oxycodone, Urine NEGATIVE (< 100 ng/mL); PCP Urine NEGATIVE (< 25 ng/mL); THC Urine NEGATIVE (< 50 ng/mL)
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
--- NOTE | 2024-08-16 22:10 | CM.ED ---
Social work Updated patient and patient's aunt of decision for inpatient mental health treatment. Answered patient and patient's aunt's questions as able. Called [facility] (ph: ) and spoke with Ava. Ava stated there was 1 bed available, but it would not be available until the morning for transport. Referral faxed (f: ). Due to shift ending, this SW called [facility] back and spoke with Salena. Salena stated ability to accept patient for arrival [address] Mandi Garcia N2N: [phone], option 3 Room: intake 1 Cannot arrive prior to 1000 on 08/17/24. Patient, patient's aunt, doctor, and procurement consultant updated. Patient's aunt requested call in the morning with transport update; request given to procurement consultant Morgan. Yoly Varma, BELTING AND WEBBING INSPECTOR, ELECTRIC MOTOR ASSEMBLER AND TESTER
[2024-08-17 02:00] VITALS: BP 108/65; PULSE 85; RESP 16; TEMP 36.9; O2SAT 98
--- NOTE | 2024-08-17 04:00 | ED.RN ---
This RN called report to STEFANY García at [facility] at this time.
[2024-08-17 08:58] VITALS: BP 124/83; PULSE 95; RESP 16; TEMP 36.9; O2SAT 99
== END 2024-08-17 09:23 ==
PROVIDERS: Emergency Provider Emergency Medicine; PCP Family Medicine; Visit Provider Emergency Medicine
DX: F32.A Depression, unspecified (principal); R45.851 Suicidal ideations
CPT/HCPCS: 36415; 80048; 80307; 82077; 84703; 85025; 99285

== ENCOUNTER 2024-10-22 23:43 | Emergency (ER) | payer BC, SELFPAY ==
[2024-10-22 23:44] VITALS: BP 132/92; PULSE 79; RESP 16; TEMP 36.7; O2SAT 98; BMI 38.3
--- NOTE | 2024-10-22 23:54 | CT_ITS ---
PROCEDURE: ABDOMEN/PELVIS W IV CONT ONLY 10/22/2024 REASON FOR EXAM: N/V/ ABD PAIN HOUR AFTER EATS TECHNIQUE: Abdomen and pelvis CT with intravenous contrast. Coronal and Sagittal reconstruction series were provided. PATIENT PREPARATION: Per protocol ORAL CONTRAST TYPE: None. CONTRAST: Isovue 370 VOLUME: 98 mL 22 gauge IV One or more dose reduction techniques were used (e.g., Automated exposure control, adjustment of the mA and/or kV according to patient size, use of iterative reconstruction technique. RADIATION DOSE SUMMARY: CTDlvol: 35.63 mGy DLP: 1225.79 mGycm COMPARISON: 09/12/2021 FINDINGS: Lung bases: Clear. Heart size is normal. Liver: Normal in size and configuration. No focal mass. Gallbladder: Normal. No stone or wall thickening. Spleen: Normal in size and configuration. Pancreas: Normal in appearance. No evidence of mass or peripancreatic fluid. Adrenals: Normal bilaterally. No evidence of mass. Kidneys: Normal nephrograms bilaterally. No evidence of mass, cyst, stone or hydronephrosis. Bladder: Normal. No evidence of wall thickening or mass. Reproductive Organs: Normal. Adnexal cysts noted on the prior examination is not visualized on the current examination. Bowel: Normal in appearance. No evidence of mass, dilatation or diverticulosis. Appendix: Normal in appearance. Lymph nodes: No pathologic lymphadenopathy. Vasculature: Normal arterial and venous structures. Peritoneum / Retroperitoneum: Normal. No evidence of fluid or mass. Bones: Within normal limits. The study is within normal limits. CT/Abdomen/Pelvis W IV Cont ONLY IMPRESSION: The study is within normal limits. No abnormality is identified. The right ad nexal cyst noted on the prior examination is not present on the current examination. OVERALL FINAL ASSESSMENT: Normal.. [facility]
[2024-10-23] MEDS: 0.9% Normal Saline (1000mL) 1,000 ML 999 ML IV (00:10)
--- NOTE | 2024-10-23 00:12 | EX.ED.DYSGE1 ---
HPI History of Present Illness Chief Complaint: Cold Sx Narrative Narrative: Patient is a 24-year-old female with past medical anxiety, depression who presented to the emergency department with a chief complaint of abdominal pain nausea vomiting. Patient states that for the past few days she has not been feeling well and states that after she eats an hour later she develops pain and will vomit. Patient complains of chills and whole body aches as well and states that she was around somebody recently that was sick as well. [facility] Medical History Depression Anxiety Home Medications ?Medication ?Instructions ?Recorded ?Last Taken ?Type Lactobacillus acidophilus 10 100 mmu cells PO DAILY 10/22/24 Unknown History billion cell capsule (NewFlora) bupropion HCl 300 mg 24 hr tablet, 300 mg PO DAILY 10/22/24 Unknown History extended release omeprazole 20 mg capsule,delayed 20 mg PO DAILY 10/22/24 Unknown History release dicyclomine 20 mg tablet 20 mg PO TID #20 tabs 10/23/24 Unknown Rx ondansetron 4 mg disintegrating 4 mg PO Q6H PRN nausea and 10/23/24 Unknown Rx tablet vomiting #20 tabs Allergy/AdvReac Type Severity Reaction Status Date / Time cinnamon Allergy Severe Angioedema Verified 10/22/24 23:45 Social History Smoking Status: Never smoker ROS ROS ED ROS Narrative Constitutional: Complains of chills whole body aches as noted above denies any fevers Eyes: Denies change in vision double vision blurry vision Cardiovascular: Denies chest pain or palpitations Respiratory: Denies coughing wheezing shortness of breath Abdomen: Complains of abdominal pain nausea vomiting as noted above denies diarrhea : Denies urinary symptoms Neurological: Denies numbness, weakness, tingling Musculoskeletal: Denies back pain Skin: Denies rashes or lesions EXAM Physical Exam Narrative Exam Narrative: General: Patient was lying in bed rest comfortably did not appear to be acute distress Head: Atraumatic, normocephalic Eyes: PERRL bilateral, EOMI bilateral, no conjunctival injection noted Neck: Soft, supple, trachea midline Cardiovascular: Regular in rhythm Respiratory: Clear to auscultation bilaterally Abdomen: Soft, nondistended, mild tenderness palpation in the epigastric region no rebound or guarding on exam negative Dailey sign Extremities: +5/5 strength in the bilateral upper and lower extremities, radial pulses +2/4 in the bilateral extremities Neurological: Patient following commands knew that she was at [facility] years 2024 Skin: Warm, dry, intact no rashes or lesions noted Const Vital Signs: 10/22/24 23:44 10/23/24 01:44 Temperature 98.1 F Temperature Source Oral Pulse Rate 79 78 Respiratory Rate 16 18 Blood Pressure 132/92 H 132/87 H Blood Pressure Mean 105 102 Pulse Ox 98 100 Oxygen Delivery Method Room Air Room Air MDM MDM MDM Narrative Medical decision making narrative: Patient is a 24-year-old female who presents to the emergency department with a chief complaint abdominal pain nausea vomiting. On the differential diagnosis includes but not limited to cholecystitis, pancreatitis, choledocholithiasis, cholelithiasis, , viral gastroenteritis. Once workup is obtained reviewed she will be reevaluated. Patient to get IV fluids. Patient CBC reviewed showed no evidence leukocytosis white blood count normal at 6.2, hemoglobin stable 13.2, plate count normal at 241. Patient sodium normal 136, potassium of 3.6, creatinine was 0.83. Patient's AST and ALT were 18 and 19 respectively with a normal total bilirubin of 0.35. Patient lipase normal at 22, urinalysis reviewed showed no evidence of infection. Patient CT abdomen pelvis with IV contrast did not show any acute findings there was a right adnexal cyst that was noted on prior examination is not present on current examination. On reevaluation the patient she is feeling better she would like to go home at this point in time. Patient was advised to start with a bland diet advance as tolerated she will be given prescriptions for Zofran and Bentyl. She will be given referral to general surgery to further evaluate her gallbladder with potential HIDA scan. She is also advised to follow-up with her primary care physician and return with worsening symptoms or concerns. She is agreeable to plan as well as significant other at bedside all course concerns answered she was discharged home in stable condition Lab Data Labs: Laboratory Results - last 24 hr 10/22/24 10/23/24 00:10 00:10 WBC 6.2 RBC 4.51 Hgb 13.2 Hct 38.6 MCV 85.6 MCH 29.3 MCHC 34.2 RDW Std Deviation 37.7 RDW Coeff of Kimberly 12.1 Plt Count 241 MPV 10.8 Immature Gran % (Auto) 0.500 Neut % (Auto) 57.1 Lymph % (Auto) 22.2 [place] % (Auto) 18.6 H Eos % (Auto) 1.0 Baso % (Auto) 0.6 Absolute Neuts (auto) 3.6 Absolute Lymphs (auto) 1.38 Nucleated RBC % 0 Sodium 136 Potassium 3.6 Chloride 102 Carbon Dioxide 22.1 Anion Gap 12 BUN 11 Creatinine 0.83 Estim Creat Clear Calc 125.46 Est GFR (MDRD) Non-Af 101 BUN/Creatinine Ratio 13.1 Glucose 98 Calcium 9.1 Total Bilirubin 0.35 AST 18 ALT 19 Alkaline Phosphatase 85 Total Protein 7.6 Albumin 4.5 Globulin 3.1 Albumin/Globulin Ratio 1.4 Lipase 22 Urine Color Straw Urine Clarity Clear Urine pH 6.0 Ur Specific [place] 1.015 Urine Protein 15 H Urine Glucose (UA) Normal Urine Ketones Negative Urine Occult Blood Negative Urine Nitrite Negative Urine Bilirubin Negative Urine Urobilinogen Normal Ur Leukocyte Esterase Negative Urine RBC 0 SEEN Urine WBC 0-5 SEEN Ur Squamous Epith Cells 5-10 SEEN Urine Bacteria 1+ Urine Mucus 0 SEEN Urine Test Negative Radiography Diagnostic Testing: Clinical Impression(s) from Imaging Studies Abdomen/Pelvis CT 10/22/24 23:54 IMPRESSION: The study is within normal limits. No abnormality is identified. The right adnexal cyst noted on the prior examination is not present on the current examination. OVERALL FINAL ASSESSMENT: Normal.. Reading Location: [id number] Discharge Plan Triage Chief Complaint: Cold Sx ED Provider: Arnold Ruiz Dx/Rx/DC Orders Clinical Impression: Abdominal pain, Nausea & vomiting Prescriptions: New ondansetron 4 mg tablet,disintegrating 4 mg PO Q6H PRN (Reason: nausea and vomiting) Qty: 20 0RF dicyclomine 20 mg tablet 20 mg PO TID Qty: 20 0RF No Action NewFlora 10 billion cell capsule 100 mmu cells PO DAILY omeprazole 20 mg capsule,delayed release(DR/EC) 20 mg PO DAILY bupropion HCl 300 mg tablet extended release 24 hr 300 mg PO DAILY Primary Care Provider: David Kunz Referrals: David Kunz MD [Primary Care Provider] - Gary Lo MD [Med Staff - Active Staff] - Activity Restrictions/Additional Instructions: Follow-up with your doctor in outpatient setting. Follow-up with general surgery referred to. Take prescriptions as prescribed start the bland diet advance tolerated. Return with worsening symptoms or concerns. Your blood work did not show any acute findings. Your CT did not show any acute findings either. Print Language: Albanian Disposition Disposition: Home, Self Care
[2024-10-23 00:18] LABS: Mucous, Urine 0 SEEN /hpf (<or=2+); Red Blood Cells-Urine 0 SEEN /hpf (0-5)
[2024-10-23 00:20] LABS: Absolute Lymphocyte Count 1.38 X10^3/uL (0.83-4.51); Absolute Neutrophil Count 3.6 X10^3/uL (2.0-7.7); Basophil# 0.04 X10^3/uL; Basophil% 0.6 % (0-1); Eosinophil# 0.06 X10^3/uL; Hematocrit 38.6 % (37-47); Hemoglobin 13.2 g/dL (12.0-15.0); Lymphocyte # 1.38 X10^3/ul (0.83-4.51); Lymphocyte % 22.2 % (19-41); Mean Corp Hgb Conc 34.2 g/dL (32-36); Mean Corpuscular Hgb 29.3 pg (27.0-32.0); Mean Corpuscular Volume 85.6 fL (81-99); Mean Platelet Vol. 10.8 fl (6.2-12.0); Monocyte# 1.16 X10^3/uL; Monocyte% 18.6 % (0-10); NRBC Flagged by Analyzer 0 % (0-5); Neutrophil # 3.56 X10^3/uL (2.7-7.7); Neutrophil % 57.1 % (47-70); Platelet Count 241 K/mm3 (150-450); RBC Distribution Width CV 12.1 % (11.6-14.6); RBC Distribution Width SD 37.7 fl (35.1-43.9); Red Blood Count 4.51 M/mm3 (4.2-5.4); White Blood Count 6.2 K/mm3 (4.4-11.0)
[2024-10-23 00:21] LABS: Color, Urine Straw (Yellow); Glucose, Dipstick Normal (Normal); Ketone-Dipstick Negative (Negative); Leukocyte Esterase-Dipstick Negative /ul (Negative); Nitrite-Dipstick Negative (Negative); Occult Blood-Urine Negative /ul (Negative); Protein-Dipstick 15 mg/dl (Negative); Specific Gravity, Urine 1.015 (1.002-1.030); Urine Bilirubin Dipstick Negative (Negative); Urine Clarity Clear (Clear); Urine Urobilinogen Normal (Normal)
[2024-10-23 00:36] LABS: Bacteria 1+ /hpf (None Seen); Internal QC Validated? YES +Cl - CLEAR BKGD; Pregnancy, Urine Negative Negative; Squamous Epithelial Cells - UA 5-10 SEEN /hpf (5-10); White Blood Cells 0-5 SEEN /hpf (0-5)
[2024-10-23 00:44] LABS: ALB/GLOB Ratio 1.4 RATIO (0.9-2.4); AST(SGOT) 18 U/L (<=31); Alanine Aminotransfer ALT/SGPT 19 U/L (<=34); Albumin, Serum 4.5 g/dL (3.5-5.0); Alkaline Phosphatase 85 U/L (35-104); Anion Gap 12 (5-15); BUN 11 mg/dL (4-19); BUN/Creat Ratio 13.1 RATIO (10-20); Calcium,Total 9.1 mg/dL (7.6-11.0); Carbon Dioxide 22.1 mmol/L (21.0-32.0); Chloride 102 mmol/L (98-108); Creatinine, Serum 0.83 mg/dL (0.70-1.20); EST Glomerular Filtration Rate 101 (>60); Estimated Creatinine Clearance 125.46 ml/min (50-250); Globulin 3.1 g/dL (2.2-4.2); Glucose 98 mg/dL (70-99); Lipase 22 U/L (13-75); Potassium 3.6 mmol/L (3.3-5.1); Protein, Total 7.6 g/dL (5.9-8.4); Sodium Level 136 mmol/L (133-145); Total Bilirubin 0.35 mg/dL (0.00-1.30)
[2024-10-23 01:44] VITALS: BP 132/87; PULSE 78; RESP 18; O2SAT 100
[2024-10-23 02:18] VITALS: BP 125/90; PULSE 72; RESP 18; TEMP 36.9; O2SAT 96
== END 2024-10-23 02:20 | disposition home or self-care (01) ==
PROVIDERS: Emergency Provider Emergency Medicine; PCP Family Medicine; Visit Provider Emergency Medicine
DX: R10.9 Unspecified abdominal pain (principal); R11.2 Nausea with vomiting, unspecified; F41.9 Anxiety disorder, unspecified; F32.A Depression, unspecified; Z79.899 Other long term (current) drug therapy
CPT/HCPCS: 74177; 80053; 81001; 81025; 83690; 85025; 96360; 96361; 99283; Q9967

== ENCOUNTER → 2024-11-04 | Outpatient (CLI) | payer BC, SELFPAY ==
--- NOTE | 2024-11-04 10:46 | US_ITS ---
PROCEDURE: ABDOMEN LIMITED 11/04/2024 REASON FOR EXAM: RUQ PAIN. N/V COMPARISON: None FINDINGS: Liver: Diffusely echogenic suggesting fatty infiltration. Liver measures 16.9 cm. Gallbladder: No stones, sludge, wall thickening or tenderness. Common bile duct: Normal measuring 2.3 mm . Pancreas: Obscured by bowel gas. Other: Visualized portions of the right kidney are unremarkable. No right upper quadrant ascites. US/Abdomen Limited IMPRESSION: Fatty infiltration of the liver. Nonvisualization of the pancreas due to overlying bowel gas. Reading Location: [id number]
== END | disposition home or self-care (01) ==
PROVIDERS: PCP Family Medicine; Referring Provider Family Medicine; Visit Provider Family Medicine
DX: R10.11 Right upper quadrant pain (principal); R11.2 Nausea with vomiting, unspecified
CPT/HCPCS: 76705